=== PATIENT | female | born 1990 | race Caucasian/White ===

== ENCOUNTER 2021-01-06 21:30 | Emergency (ER) | payer SELFPAY ==
[~2021-01-06] VITALS: Ht 170.2 cm; Wt 67.3 kg
[2021-01-06 21:41] VITALS: BP 130/85
[2021-01-06] MEDS ORDERED: AMOX1TAB61 PO (22:13)
--- NOTE | 2021-01-06 22:14 | PHYS DOC ---
Past History Past Surgical History: Cholecystectomy, , Gastric Bypass, Hysterectomy Adult General Chief Complaint Chief Complaint: ANIMAL BITE HPI HPI Patient is a 30-year-old female up-to-date on tetanus vaccinations who presents with accidental dog bite to the right hand as she was trying to break up her 2 dogs who were fighting and accidentally had skin torn off the back of her right hand. Denies any other injuries. States that pain levels about 5 out of 10, dull and achy in nature with no radiation. Review of Systems Review of Systems Review of systems otherwise unremarkable except noted in HPI Physical Exam Physical Exam Constitutional: Well developed, well nourished, no acute distress, non-toxic appearance. [] HENT: Normocephalic, atraumatic, Eyes: conjunctiva normal, no discharge. [] Neck: Normal range of motion, no tenderness, supple, no stridor. [] Extremities: A 3cm linear laceration, superficial on posterior right hand, bleeding controlled, neurovascular exam intact. Neurologic: Alert and oriented X 3, no focal deficits noted. [] Psychologic: Affect normal, judgement normal, mood normal. [] Current Patient Data Vital Signs Vital Signs Date Time Temp Pulse Resp B/P (MAP) Pulse Ox O2 Delivery O2 Flow Rate FiO2 01/06/21 21:41 97.1 91 18 130/85 97 Room Air EKG EKG [] Radiology/Procedures Radiology/Procedures 3 cm linear laceration on back of right hand. Cleaned with sterile water extensively. L ET placed for topical anesthesia. Cleaned extensively again with sterile water. 5 sutures placed of 4-0 Ethilon. Patient tolerated well. Bandaged [] Heart Score C/O Chest Pain: No Risk Factors: Risk Factors: DM, Current or recent (<one month) smoker, HTN, HLP, family history of CAD, obesity. Risk Scores: Risk Factors: DM, Current or recent (<one month) smoker, HTN, HLP, family history of CAD, obesity. Course & Med Decision Making Course & Med Decision Making Patient is a [age]-year-old female who presents with dog bite to the back of the hand Vital signs not concerning. Physical exam noted above. Patient states she did wash it out for 5 or 10 minutes at home. States that these were her 2 dogs that she was trying to break up from fighting and are up-to-date on their shots. Cleaned wound. LAT placed. Repaired with suture. Started on Augmentin. Gave discharge wound care instructions. Advised to follow-up with primary care in 5 to 7 days for wound check and suture removal. Gave return precautions to the ED. Patient grateful, verbalized understanding a nd agreed with plan of discharge. [] Dragon Disclaimer Dragon Disclaimer This electronic medical record was generated, in whole or in part, using a voice recognition dictation system. Departure Departure: Impression: Primary Impression: Dog bite Disposition: HOME / SELF CARE / HOMELESS Condition: GOOD Referrals: PCP,UNKNOWN (PCP) JOSE DUBOIS MD Patient Instructions: Animal Bite Scripts Amoxicillin/Potassium Clav (AUGMENTIN 875-125 TABLET) 1 Each Tablet 1 TAB PO BID for dog bite for 10 Days, #19 TAB 0 Refills Prov: MICHAEL SOLORIO MD 01/06/21 IMCHAEL SOLORIO MD Jan 06, 2021 22:14
[2021-01-06] MEDS ORDERED: IBUPROFEN 600 MG TABLET. PO ONE ×2 (22:15→22:30)
[2021-01-06] MEDS ORDERED: LIDOCAINE/EPI/TETRACAINE TOPICAL GEL 3 ML. TP ONE (22:15)
[2021-01-06] MEDS ORDERED: ACETAMINOPHEN 500 MG TABLET PO ONE (22:15)
[2021-01-06] MEDS ORDERED: AMOXICILLIN/K CLAV 875/125MG TABLET. PO ONE (22:15)
== END 2021-01-06 23:26 | disposition home or self-care (01) ==
LOC: ER 21:30
DX: S61.411A Laceration without foreign body of right hand, initial encounter (principal); S61.451A Open bite of right hand, initial encounter; Z90.49 Acquired absence of other specified parts of digestive tract; Z90.710 Acquired absence of both cervix and uterus; W54.0XXA Bitten by dog, initial encounter; Y93.89 Activity, other specified; Y92.89 Other specified places as the place of occurrence of the external cause; Y99.8 Other external cause status
CPT/HCPCS: 12002; 99284